=== PATIENT | female | born 2000 | race Two or more races ===

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

== ENCOUNTER 2018-05-02 05:00 | Inpatient (IN) | payer MEDICAID ==
[2018-05-02] VITALS (10 sets, daily range): BP systolic 107–133; BP diastolic 51–88
[~2018-05-02] VITALS: Ht 162.6 cm; Wt 95.7 kg
[2018-05-02] MEDS ORDERED: LACTATED RINGER'S 1,000 ML IV SCH (05:19)
[2018-05-02 05:50] LABS: Basophils # (auto) 0.1 uL; Basophils % (auto) 0.7 % (0.0-2.0); Eosinophils # (auto) 0.1 uL; Eosinophils % (auto) 1.1 % (0.0-7.0); Hematocrit 41.6 % (36.0-46.0); Hemoglobin 14.1 g/dL (12.2-16.2); Lymphocytes # (auto) 1.7 uL; Lymphocytes % (auto) 21.7 % (10.0-50.0); Mean Corpuscular Hgb Conc. 33.8 g/dL (32.0-36.0); Mean Corpuscular Volume 91.8 fL (80.0-100.0); Monocytes # (auto) 0.9 uL; Neutrophils # (auto) 5.1 uL; Neutrophils % (auto) 64.5 % (37.0-80.0); Nucleated Red Blood Cells % 0.1 %; Platelet Count (auto) 212 10^3/uL (140-450); Red Blood Cells 4.53 10^6/uL (4.0-5.20); Red Cell Distribution Width 13.4 % (11.8-14.3); White Blood Cell 7.8 10^3/uL (4.4-10.8)
[2018-05-02 06:06] LABS: Albumin 2.8 g/dL (3.4-5.0); INR 0.83 (0.9-1.15); Partial Thromboplastin Time 27.6 sec (23.78-33.04); Potassium 3.8 mmol/L (3.5-5.1)
[2018-05-02 06:08] LABS: BUN/Creatinine Ratio 15.5; Bilirubin, Total 0.4 mg/dL (0.2-1.0); Total Protein 6.9 g/dL (6.4-8.2)
[2018-05-02] MEDS ORDERED: PREN-96 PO (06:44)
[2018-05-02 06:55] LABS: Urine Bacteria NONE SEEN /hpf (None Seen); Urine Blood Negative /uL (Negative); Urine Specific Gravity 1.014 (1.001-1.035); Urine WBC 30 /hpf (0 - 5)
[2018-05-02 07:16] LABS: Alcohol, Urine < 3.0 mg/dL (0-5); Amphetamine Screen, Urine NEGATIVE (NEGATIVE); Barbiturate Scree,Urine NEGATIVE (NEGATIVE); Benzodiazephine Screen, Urine NEGATIVE (NEGATIVE); Cannabinoid Screen, Urine NEGATIVE (NEGATIVE); Cocaine Screen, Urine NEGATIVE (NEGATIVE); Opiate Scree,Urine NEGATIVE (NEGATIVE); Phencyclidine Screen, Urine NEGATIVE (NEGATIVE)
[2018-05-02] MEDS ORDERED: LACTATED RINGER'S 500 ML IV ONE (07:35)
[2018-05-02] MEDS ORDERED: MORPHINE SULF(PF) 0.5MG/ML 10ML VIAL ONE (07:40)
[2018-05-02] MEDS ORDERED: fentaNYL CITRATE 100 MCG/2 ML VL ONE (07:40)
[2018-05-02] MEDS ORDERED: SUCCINYLCHOLINE CHLORIDE 20 MG/ML 10ML VIAL IV ONE (07:53)
[2018-05-02] MEDS ORDERED: KETOROLAC TROMETH 30 MG/ML 1ML VIAL IV PRN (09:15)
[2018-05-02] MEDS ORDERED: ONDANSETRON HCL 4 MG/2 ML VIAL IV PRN ×2 (09:15)
[2018-05-02] MEDS ORDERED: ceFAZolin 1GM/50ML 50 ML IV SCH (09:15)
[2018-05-02] MEDS ORDERED: NALOXONE HCL 0.4 MG/ML VIAL IV PRN (09:15)
[2018-05-02] MEDS ORDERED: diphenhdrAMINE HCL 50 MG/1 ML VL IV PRN (09:15)
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
--- NOTE | 2018-05-02 10:15 | NUR ---
Post Op for LDRP: Received patient from PACU via bed B to room 108 . Patient A/A/Ox4, abdominal binder and bilateral SCD's are in place, IV fluids placed on pump and infusing per order, incisional site dressing clean/dry/intact and Luis Catheter to gravity draining clear yellow urine. Incentive Spirometer at bedside and instruction on proper use with return demonstration done by patient.
--- NOTE | 2018-05-02 11:23 | NUR ---
REPORT GIVEN TO Bibiana LAST RN
[2018-05-02] MEDS: KETOROLAC TROMETH 30 MG/ML 1ML VIAL IV SCH ×2 (12:00→17:44)
[2018-05-02] MEDS: LACTATED RINGER'S 1,000 ML IV SCH ×2 (12:12→16:59)
[2018-05-02] MEDS: ceFAZolin 1GM/50ML 50 ML IV SCH ×2 (15:31→23:48)
[2018-05-02] MEDS: HYDROmorphone HCL 2 MG/ML VL IV PRN ×3 (15:31→23:39)
--- NOTE | 2018-05-02 17:36 | NUR ---
social services aide to see patient saturday
--- NOTE | 2018-05-02 19:00 | NUR ---
Dressing to lower abdominal incision clean, dry and intact. Abdominal binder applied. Addendum: 05/02/18 at 2126 by Diann Deleon RN RN Amended: Links added.
--- NOTE | 2018-05-02 19:45 | NUR ---
IV removal 20g peripheral IV to right hand DC'd with clean technique, catheter fully intact. Pressure dressing applied to site. Patient tolerated procedure well.
[2018-05-03] VITALS (7 sets, daily range): BP systolic 112–129; BP diastolic 55–78
[2018-05-03] MEDS: KETOROLAC TROMETH 30 MG/ML 1ML VIAL IV SCH ×2 (00:36→06:06)
--- NOTE | 2018-05-03 00:45 | NUR ---
Luis catheter dc'd Luis dc'd with clean technique following deflation of balloon. Patient tolerated well with no complaints of pain.
--- NOTE | 2018-05-03 01:40 | NUR ---
Ambulation: Patient OOB with standby assistance by RN. Patient ambulated to bathroom with steady gait. Patient unable to void at this time. Pericare teaching provided with returned demonstration by patient. Clean gown provided and bed linen changed. Patient ambulated back to bed with steady gait and no distress noted. dressing to lower abdominal incision removed. Incision clean, dry and well approximated. 10 mingo present and intact. Clean abdominal binder applied.
[2018-05-03] MEDS: HYDROmorphone HCL 2 MG/ML VL IV PRN (04:58)
[2018-05-03 06:06] LABS: RPR Non Reactive (Non Reactive)
[2018-05-03 06:52] LABS: Basophils # (auto) 0 uL; Basophils % (auto) 0.5 % (0.0-2.0); Eosinophils # (auto) 0 uL; Eosinophils % (auto) 0.6 % (0.0-7.0); Hematocrit 36.7 % (36.0-46.0); Hemoglobin 12.6 g/dL (12.2-16.2); Lymphocytes # (auto) 0.9 uL; Lymphocytes % (auto) 12.5 % (10.0-50.0); Mean Corpuscular Hemoglobin 31.1 pg (28.0-32.0); Mean Corpuscular Hgb Conc. 34.3 g/dL (32.0-36.0); Mean Corpuscular Volume 90.6 fL (80.0-100.0); Monocytes # (auto) 0.8 uL; Monocytes % (auto) 11.1 % (0.0-12.0); Neutrophils # (auto) 5.6 uL; Neutrophils % (auto) 75.3 % (37.0-80.0); Nucleated Red Blood Cells % 0.1 %; Platelet Count (auto) 176 10^3/uL (140-450); Red Blood Cells 4.04 10^6/uL (4.0-5.20); Red Cell Distribution Width 13.5 % (11.8-14.3); White Blood Cell 7.4 10^3/uL (4.4-10.8)
--- NOTE | 2018-05-03 06:55 | NUR ---
Pt resting in bed. Call light in reach. Sd rails upx2. Bed low. Board updated. Updated on poc, pain management. Verbalized understanding. Addendum: 05/03/18 at 1755 by DEVONTE BENJAMIN RN Incision open to air. Ten [address] place, no redness, no edema, no ecchimosis, no drainage, edges well approximated. Abdominal binder in place. Educated on need to use IS 10x hour to prevent PNA. Verbalized understanding. Demonstrated proper technique. Reached 1999.
[2018-05-03] MEDS: ceFAZolin 1GM/50ML 50 ML IV SCH (07:48)
--- NOTE | 2018-05-03 09:00 | NUR ---
Dr Frey made rounds with TRES Caceres.
[2018-05-03] MEDS ORDERED: BISACODYL 10 MG RECT SUPP PR PRN (09:15)
[2018-05-03] MEDS ORDERED: HYDROcodone-ACET 5/325MG TAB PO PRN (09:15)
[2018-05-03] MEDS: IBUPROFEN 800 MG TAB PO PRN ×2 (10:25→18:42)
[2018-05-03] MEDS: DOCUSATE CALCIUM 240 MG CAP PO SCH (10:26)
[2018-05-03] MEDS: DOCUSATE SOD 100 MG CAP PO SCH ×2 (10:27→22:00)
[2018-05-03] MEDS: SIMETHICONE 80 MG CHEWABLE TABLET PO SCH ×3 (12:00→22:00)
--- NOTE | 2018-05-03 13:45 | NUR ---
Pt requested breast pump and nipple shield. Educated on how to use breast pump, storing breast milk, cleaning of bottles, need to syringe feed to not confuse with bottle. Verbalized understanding of all information.
--- NOTE | 2018-05-03 19:30 | NUR ---
IV removal: IV DC'd with sterile technique, catheter fully intact. Pressure dressing applied to site. Patient tolerated procedure well. Addendum: 05/03/18 at 2007 by KISHORE BANERJEE RN Amended: Links added.
[2018-05-03] MEDS: HYDROcodone-ACET 5/325MG TAB PO PRN (19:50)
--- NOTE | 2018-05-03 22:00 | NUR ---
Patient refused 2200 medications, unable to chart refused under drop down menu.
[2018-05-04] VITALS (7 sets, daily range): BP systolic 119–132; BP diastolic 58–84
[2018-05-04] MEDS: HYDROcodone-ACET 5/325MG TAB PO PRN ×4 (00:28→20:12)
[2018-05-04] MEDS: DOCUSATE SOD 100 MG CAP PO SCH ×2 (05:43→22:27)
[2018-05-04] MEDS: SIMETHICONE 80 MG CHEWABLE TABLET PO SCH ×4 (05:43→22:27)
[2018-05-04] MEDS: DOCUSATE CALCIUM 240 MG CAP PO SCH (05:43)
[2018-05-04] MEDS: IBUPROFEN 800 MG TAB PO PRN ×2 (07:52→17:44)
--- NOTE | 2018-05-04 12:27 | NUR ---
PROCEDURAL NURSE PAGED PROCEDURAL NURSE REGARDING PENDING PROCEDURAL NURSE CONSULT. AWAITING CALL BACK.
--- NOTE | 2018-05-04 12:40 | NUR ---
BREAKER UP Yasmin CORDOBA CASE MANAGEMENT CALLED BACK. NOTIFIED HER OF PENDING BREAKER UP CONSULT. PER Yasmin CORDOBA, SHE WILL PAGE MIRI LEON AND NOTIFY HER OF CONSULT.
--- NOTE | 2018-05-04 12:45 | NUR ---
AMBULATION PT AMBULATING HALLWAY WITH STEADY GAIT, PUSHING IN OPEN CRIB. NO S/S OF DISTRESS OR SOB NOTED.
--- NOTE | 2018-05-04 13:00 | NUR ---
LOADING UNIT OPERATOR SEATING Emma LEON LOADING UNIT OPERATOR SEATING CALLED BACK. NOTIFIED HER OF LOADING UNIT OPERATOR SEATING CONSULT. PER Emma LEON, SHE STATED SOMEONE ALREADY SAW THIS PATIENT. NOTIFIED MIRI THAT NO NOTE IS DOCUMENTED THAT PT WAS SEEN YET. PER MIRI SHE WILL INVESTIGATE FURTHER. WILL CONTINUE TO MONITOR.
--- NOTE | 2018-05-04 13:30 | NUR ---
CLAIMS CONFIGURATION ANALYST VERENE FROM [employer]S [employer]URATION [employer] CALLED AND NOTIFIED WELT SLASHERTRES CARDENAS THAT SHE WILL COME TALK WITH PATIENT TOMORROW. WILL NOTIFY AUDIO VISUAL TECHNICIAN RN. WILL CONTINUE TO MONITOR.
--- NOTE | 2018-05-04 18:09 | NUR ---
Post Op assessment complete, incision visualized. Incision is open to air, clean without bleeding or drainage, all mingo intact, no redness or warmth noted at the site.
[2018-05-05] MEDS: HYDROcodone-ACET 5/325MG TAB PO PRN (02:18)
[2018-05-05 02:38] VITALS: BP 119/75
--- NOTE | 2018-05-05 04:05 | NUR ---
Amelia COHEN at bedside for staple removal. All mingo removed at this time, patient has no complaints at this time nor does she display any signs of discomfort or distress.
--- NOTE | 2018-05-05 04:55 | NUR ---
Pt ambulating in hallways withe steady gait, while pushing in bassinet.
[2018-05-05] MEDS: IBUPROFEN 800 MG TAB PO PRN (05:43)
[2018-05-05] MEDS: SIMETHICONE 80 MG CHEWABLE TABLET PO SCH (05:43)
[2018-05-05 06:46] VITALS: BP 111/64
--- NOTE | 2018-05-05 07:58 | NUR ---
Social Service Paige called and states she will be in to see patient around 9 am.
--- NOTE | 2018-05-05 09:00 | NUR ---
Social Service at bedside to talk to patient . Maximiliano Gibson will make a note about conversation patient is all clear to go home. patient instructed to go to crisis center if having any thoughts of Suicide . Patient has address and telephone number to crisis center and states she will be follow up with her psych doctor after discharge home . Good family support mother at bedside. Discharge: Discharge instructions given as ordered. Pt encouraged to follow up with LITERACY TEACHER as instructed. All questions and concerns addressed. Patient verbalized understanding. Medication reconciliation completed and copy given to patient. Patient refused influenza vaccine. Patient encouraged to prepare to depart unit.
--- NOTE | 2018-05-05 09:30 | NUR ---
Discharge: Discharge instructions given as ordered. Pt encouraged to follow up with FUR TINTER as instructed. All questions and concerns addressed. Patient verbalized understanding. Medication reconciliation completed and copy given to patient. PATIENT REFUSED INFLUENZA VACCINE AND T-DAP Patient encouraged to prepare to depart unit.
[2018-05-05] MEDS: DOCUSATE SOD 100 MG CAP PO SCH (10:00)
[2018-05-05] MEDS: DOCUSATE CALCIUM 240 MG CAP PO SCH (10:00)
--- NOTE | 2018-05-05 10:00 | NUR ---
Discharge: Patient taken to vehicle via wheelchair with all personal belongings, accompanied by staff and family member. No distress noted at time of departure, no adverse changes in status since initial assessment.
== END 2018-05-05 10:00 | disposition home or self-care (01) | DRG 540 ==
LOC: LDRP 05:00
PROVIDERS: ADMIT Specialist; ATTEND Specialist
PROC: 10D00Z1 Extraction of Products of Conception, Low, Open Approach (ICD-10-PCS; principal; 2018-05-02 08:02)
DX: O32.1XX0 Maternal care for breech presentation, not applicable or unspecified (principal); F32.9 Major depressive disorder, single episode, unspecified; O99.344 Other mental disorders complicating childbirth; Z37.0 Single live birth; Z3A.39 39 weeks gestation of pregnancy; F41.9 Anxiety disorder, unspecified
CPT/HCPCS: 36415; 51702; 59025; 80053; 80307; 81001; 81002; 85025; 85610; 85730; 86592; 86850; 86900; 86901; 94760; 96365; 96366; 96374; 96375; G0378; J0330; J0690; J1885

== ENCOUNTER 2019-01-15 21:06 | Emergency (ER) | payer MEDICAID ==
[~2019-01-15] VITALS: Ht 162.6 cm; Wt 90.3 kg
[~2019-01-15 21:06] MED LIST: PREN-96 PO
[2019-01-15 21:53] LABS: Basophils # (auto) 0.1 uL; Basophils % (auto) 0.8 % (0.0-2.0); Eosinophils # (auto) 0.1 uL; Eosinophils % (auto) 1.5 % (0.0-7.0); Hematocrit 36.6 % (36.0-46.0); Hemoglobin 12.5 g/dL (12.2-16.2); Lymphocytes % (auto) 15.1 % (10.0-50.0); Mean Corpuscular Hemoglobin 29.6 pg (28.0-32.0); Mean Corpuscular Hgb Conc. 34.2 g/dL (32.0-36.0); Mean Corpuscular Volume 86.5 fL (80.0-100.0); Monocytes # (auto) 0.4 uL; Monocytes % (auto) 6.3 % (0.0-12.0); Neutrophils # (auto) 5.1 uL; Neutrophils % (auto) 76.3 % (37.0-80.0); Nucleated Red Blood Cells % 0.1 %; Platelet Count (auto) 288 10^3/uL (140-450); Red Blood Cells 4.23 10^6/uL (4.0-5.20); Red Cell Distribution Width 13.1 % (11.8-14.3); White Blood Cell 6.7 10^3/uL (4.4-10.8)
[2019-01-15 22:14] LABS: Albumin 3.7 g/dL (3.4-5.0); BUN/Creatinine Ratio 15.7; Calcium 8.7 mg/dL (8.5-10.1); Potassium 3.8 mmol/L (3.5-5.1)
[2019-01-15 22:16] LABS: Bilirubin, Total 0.3 mg/dL (0.2-1.0); Total Protein 7.3 g/dL (6.4-8.2)
[2019-01-16 02:00] VITALS: BP 116/68
== END 2019-01-16 04:00 | disposition home or self-care (01) ==
LOC: ER 21:06
DX: O03.9 Complete or unspecified spontaneous abortion without complication (principal); O99.331 Smoking (tobacco) complicating pregnancy, first trimester; Z3A.01 Less than 8 weeks gestation of pregnancy
CPT/HCPCS: 36415; 76801; 80053; 84702; 85025; 86850; 86900; 86901

== ENCOUNTER 2019-07-25 03:57 | Emergency (ER) | payer MEDICAID ==
[~2019-07-25] VITALS: Ht 162.6 cm; Wt 88.5 kg
[2019-07-25 07:53] LABS: Urine Bacteria FEW /hpf (None Seen); Urine Blood Negative /uL (Negative); Urine Mucus MODERATE (None Seen); Urine Specific Gravity 1.033 (1.001-1.035); Urine WBC 43 /hpf (0 - 5)
[2019-07-25 08:24] LABS: Amphetamine Screen, Urine POSITIVE (NEGATIVE); Barbiturate Scree,Urine NEGATIVE (NEGATIVE); Benzodiazephine Screen, Urine NEGATIVE (NEGATIVE); Cannabinoid Screen, Urine NEGATIVE (NEGATIVE); Cocaine Screen, Urine NEGATIVE (NEGATIVE); Opiate Scree,Urine NEGATIVE (NEGATIVE); Phencyclidine Screen, Urine NEGATIVE (NEGATIVE)
[2019-07-25 08:59] VITALS: BP 112/69
== END 2019-07-25 09:00 | disposition home or self-care (01) ==
LOC: ER 03:57
DX: T78.40XA Allergy, unspecified, initial encounter (principal); N39.0 Urinary tract infection, site not specified; F10.10 Alcohol abuse, uncomplicated; F12.10 Cannabis abuse, uncomplicated; F41.9 Anxiety disorder, unspecified; F17.210 Nicotine dependence, cigarettes, uncomplicated; Z90.710 Acquired absence of both cervix and uterus; Z32.02 Encounter for pregnancy test, result negative; X58.XXXA Exposure to other specified factors, initial encounter
CPT/HCPCS: 80307; 81001; 81025

== ENCOUNTER 2019-08-15 12:04 | Emergency (ER) | payer MEDICAID ==
[~2019-08-15] VITALS: Ht 162.6 cm; Wt 79.1 kg
[2019-08-15 14:09] LABS: Basophils # (auto) 0 10 ^3/uL (0-0.2); Basophils % (auto) 0.6 % (0.0-2.0); Eosinophils # (auto) 0.1 10 ^3/uL (0-0.8); Hematocrit 40.4 % (36.0-46.0); Hemoglobin 13.5 g/dL (12.2-16.2); Lymphocytes # (auto) 1.7 10 ^3/uL (0.4-5.4); Lymphocytes % (auto) 30.3 % (10.0-50.0); Mean Corpuscular Hgb Conc. 33.4 g/dL (32.0-36.0); Mean Corpuscular Volume 86.8 fL (80.0-100.0); Monocytes # (auto) 0.5 10 ^3/uL (0-1.3); Neutrophils # (auto) 3.3 10 ^3/uL (1.6-8.6); Neutrophils % (auto) 58.1 % (37.0-80.0); Nucleated Red Blood Cells % 0.1 %; Platelet Count (auto) 278 10^3/uL (140-450); Red Blood Cells 4.65 10^6/uL (4.0-5.20); Red Cell Distribution Width 14.3 % (11.8-14.3); White Blood Cell 5.6 10^3/uL (4.4-10.8)
[2019-08-15 14:14] LABS: Urine Bacteria FEW /hpf (None Seen); Urine Blood 1+ /uL (Negative); Urine Mucus FEW (None Seen); Urine Specific Gravity 1.022 (1.001-1.035); Urine WBC 4 /hpf (0 - 5)
[2019-08-15 14:30] LABS: Alcohol, Urine < 3.0 mg/dL (0-10); Amphetamine Screen, Urine NEGATIVE (NEGATIVE); Barbiturate Scree,Urine NEGATIVE (NEGATIVE); Benzodiazephine Screen, Urine NEGATIVE (NEGATIVE); Cannabinoid Screen, Urine NEGATIVE (NEGATIVE); Cocaine Screen, Urine NEGATIVE (NEGATIVE); Opiate Scree,Urine NEGATIVE (NEGATIVE); Phencyclidine Screen, Urine NEGATIVE (NEGATIVE)
[2019-08-15 16:01] VITALS: BP 114/72
== END 2019-08-15 16:22 | disposition home or self-care (01) ==
LOC: ER 12:04
DX: O20.0 Threatened abortion (principal); O23.41 Unspecified infection of urinary tract in pregnancy, first trimester; O30.001 Twin pregnancy, unspecified number of placenta and unspecified number of amniotic sacs, first trimester; Z3A.01 Less than 8 weeks gestation of pregnancy
CPT/HCPCS: 36415; 76801; 76817; 80307; 81001; 84702; 85025

== ENCOUNTER 2019-10-01 20:35 | Emergency (ER) | payer MEDICAID ==
[~2019-10-01] VITALS: Ht 162.6 cm; Wt 82.1 kg
[2019-10-01 21:21] VITALS: BP 133/70
[2019-10-01 22:28] LABS: Basophils # (auto) 0 10 ^3/uL (0-0.2); Basophils % (auto) 0.5 % (0.0-2.0); Eosinophils # (auto) 0.2 10 ^3/uL (0-0.8); Eosinophils % (auto) 2.2 % (0.0-7.0); Hematocrit 37.3 % (36.0-46.0); Hemoglobin 12.6 g/dL (12.2-16.2); Lymphocytes # (auto) 1.7 10 ^3/uL (0.4-5.4); Lymphocytes % (auto) 21.4 % (10.0-50.0); Mean Corpuscular Hemoglobin 30.3 pg (28.0-32.0); Mean Corpuscular Hgb Conc. 33.9 g/dL (32.0-36.0); Mean Corpuscular Volume 89.6 fL (80.0-100.0); Monocytes # (auto) 0.6 10 ^3/uL (0-1.3); Monocytes % (auto) 8.2 % (0.0-12.0); Neutrophils # (auto) 5.2 10 ^3/uL (1.6-8.6); Neutrophils % (auto) 67.7 % (37.0-80.0); Platelet Count (auto) 268 10^3/uL (140-450); Red Blood Cells 4.16 10^6/uL (4.0-5.20); White Blood Cell 7.7 10^3/uL (4.4-10.8)
[2019-10-01 22:48] LABS: Urine Bacteria NONE SEEN /hpf (None Seen); Urine Blood 3+ /uL (Negative); Urine Specific Gravity 1.031 (1.001-1.035); Urine WBC 112 /hpf (0 - 5)
[2019-10-01 22:53] LABS: Albumin 3.1 g/dL (3.4-5.0); Potassium 3.8 mmol/L (3.5-5.1)
[2019-10-01 22:57] LABS: BUN/Creatinine Ratio 16.9; Bilirubin, Total 0.2 mg/dL (0.2-1.0); Total Protein 7.3 g/dL (6.4-8.2)
[2019-10-01 23:52] LABS: Alcohol, Urine < 3.0 mg/dL (0-10); Amphetamine Screen, Urine NEGATIVE (NEGATIVE); Barbiturate Scree,Urine NEGATIVE (NEGATIVE); Benzodiazephine Screen, Urine NEGATIVE (NEGATIVE); Cannabinoid Screen, Urine NEGATIVE (NEGATIVE); Cocaine Screen, Urine NEGATIVE (NEGATIVE); Opiate Scree,Urine NEGATIVE (NEGATIVE); Phencyclidine Screen, Urine NEGATIVE (NEGATIVE)
[2019-10-02] MEDS ORDERED: cefTRIAXone SOD 1,000 MG VL IM ONE (00:45)
[2019-10-02] MEDS ORDERED: LIDOCAINE 2%HCL (LOCAL ANESTH.) INJ 20ML MDV ONE (01:57)
== END 2019-10-02 02:10 | disposition home or self-care (01) ==
LOC: ER 20:35
DX: O20.9 Hemorrhage in early pregnancy, unspecified (principal); O23.41 Unspecified infection of urinary tract in pregnancy, first trimester; O30.001 Twin pregnancy, unspecified number of placenta and unspecified number of amniotic sacs, first trimester; Z3A.10 10 weeks gestation of pregnancy
CPT/HCPCS: 36415; 76801; 80053; 80307; 81001; 84702; 85025; 99284; J0696

== ENCOUNTER 2020-03-02 21:10 | Observation (INO) | payer MEDICAID ==
[2020-03-02 22:39] LABS: Urine Amorphous Crystal MOD /hpf (None Seen); Urine Bacteria MOD /hpf (None Seen); Urine Blood Negative /uL (Negative); Urine Mucus FEW (None Seen); Urine Specific Gravity 1.017 (1.001-1.035); Urine WBC 97 /hpf (0 - 5)
[2020-03-03] MEDS: TERBUTALINE SULFATE 1 MG/ML 1ML VIAL SC SCH ×3 (01:04→01:55)
[2020-03-03] MEDS ORDERED: BETAMETHASONE ACET (6MG/ML) 5ML VIAL IM ONE (01:30)
[2020-03-03] MEDS ORDERED: NIFEdipine 10 MG CAP PO SCH (02:00)
== END 2020-03-03 07:49 | disposition home or self-care (01) ==
LOC: LDRP 21:10 → UNDOADMOB 21:10 → UNDODISOB 03-03 07:49
PROVIDERS: ADMIT Specialist; ATTEND Specialist
DX: O30.003 Twin pregnancy, unspecified number of placenta and unspecified number of amniotic sacs, third trimester (principal); O26.893 Other specified pregnancy related conditions, third trimester; R10.30 Lower abdominal pain, unspecified; R10.2 Pelvic and perineal pain; N89.8 Other specified noninflammatory disorders of vagina; Z3A.33 33 weeks gestation of pregnancy
CPT/HCPCS: 59025; 76815; 81001; 81002; 96360; 96361; 96372; G0378; J0702; J3105

== ENCOUNTER 2020-03-08 16:00 | Observation (INO) | payer MEDICAID | END 2020-03-08 19:16 | disposition home or self-care (01) | LOC: LDRP 16:00 | PROVIDERS: ADMIT Specialist; ATTEND Specialist | DX: O30.003 Twin pregnancy, unspecified number of placenta and unspecified number of amniotic sacs, third trimester (principal); O62.9 Abnormality of forces of labor, unspecified; Z3A.34 34 weeks gestation of pregnancy | CPT/HCPCS: 59025; 76818; 81002; G0378 ==

== ENCOUNTER 2020-03-20 12:06 | Observation (INO) | payer MEDICAID | END 2020-03-20 12:15 | disposition home or self-care (01) | LOC: LDRP 12:06 | PROVIDERS: ADMIT Obstetrics & Gynecology; ATTEND Obstetrics & Gynecology | DX: U07.1 COVID-19 (principal) | CPT/HCPCS: G0378 ==

== ENCOUNTER 2020-03-22 04:57 | Inpatient (IN) | payer MEDICAID ==
[2020-03-22] VITALS (16 sets, daily range): BP systolic 112–136; BP diastolic 56–74
[~2020-03-22] VITALS: Ht 162.6 cm; Wt 103.9 kg
[2020-03-22] MEDS ORDERED: ceFAZolin 1GM/50ML 50 ML IV ONE (05:15)
[2020-03-22] MEDS ORDERED: LACTATED RINGER'S 1,000 ML IV SCH ×2 (05:15→11:45)
[2020-03-22 06:45] LABS: Urine Bacteria MOD /hpf (None Seen); Urine Blood Negative /uL (Negative); Urine Specific Gravity 1.013 (1.001-1.035); Urine WBC 53 /hpf (0 - 5)
[2020-03-22 06:56] LABS: Basophils # (auto) 0 10 ^3/uL (0-0.2); Basophils % (auto) 0.4 % (0.0-2.0); Eosinophils # (auto) 0.1 10 ^3/uL (0-0.8); Eosinophils % (auto) 0.9 % (0.0-7.0); Hematocrit 34.4 % (36.0-46.0); Hemoglobin 11.9 g/dL (12.2-16.2); Lymphocytes # (auto) 1.4 10 ^3/uL (0.4-5.4); Lymphocytes % (auto) 21.1 % (10.0-50.0); Mean Corpuscular Hemoglobin 30.6 pg (28.0-32.0); Mean Corpuscular Hgb Conc. 34.6 g/dL (32.0-36.0); Mean Corpuscular Volume 88.5 fL (80.0-100.0); Monocytes # (auto) 0.6 10 ^3/uL (0-1.3); Monocytes % (auto) 9.4 % (0.0-12.0); Neutrophils # (auto) 4.5 10 ^3/uL (1.6-8.6); Neutrophils % (auto) 68.2 % (37.0-80.0); Nucleated Red Blood Cells % 0.1 %; Platelet Count (auto) 208 10^3/uL (140-450); Red Blood Cells 3.89 10^6/uL (4.0-5.20); Red Cell Distribution Width 13.7 % (11.8-14.3); White Blood Cell 6.7 10^3/uL (4.4-10.8)
[2020-03-22 07:01] LABS: INR 0.91 (0.9-1.15); Partial Thromboplastin Time 28.9 sec (23.0-31.2)
[2020-03-22 07:05] LABS: Albumin 2.4 g/dL (3.4-5.0); Calcium 8.2 mg/dL (8.5-10.1); Potassium 3.6 mmol/L (3.5-5.1)
[2020-03-22 07:09] LABS: BUN/Creatinine Ratio 18.8; Bilirubin, Total 0.5 mg/dL (0.2-1.0); Total Protein 6.2 g/dL (6.4-8.2)
[2020-03-22] MEDS ORDERED: TETRACAINE 1% INJ 2 ML VIAL IJ ONE (09:29)
[2020-03-22] MEDS ORDERED: MORPHINE SULF(PF) 0.5MG/ML 10ML VIAL ONE (09:40)
[2020-03-22] MEDS ORDERED: fentaNYL CITRATE 100 MCG/2 ML VL ONE (09:41)
[2020-03-22] MEDS ORDERED: GUM (CHEWING) 1 GUM CHEW CHEW ONE (11:45)
[2020-03-22] MEDS ORDERED: ceFAZolin 1GM/50ML 50 ML IV SCH (11:45)
[2020-03-22] MEDS ORDERED: HYDROmorphone HCL 2 MG/ML VL IV PRN (11:45)
[2020-03-22] MEDS ORDERED: ONDANSETRON HCL 4 MG/2 ML VIAL IV PRN ×2 (11:45→14:30)
[2020-03-22] MEDS ORDERED: SODIUM CITR/CITRIC ACID ORAL SOLN 30 ML PO SCH (13:00)
[2020-03-22] MEDS: KETOROLAC TROMETH 30 MG/ML 1ML VIAL IV PRN ×2 (13:53→22:20)
[2020-03-22] MEDS ORDERED: diphenhdrAMINE HCL 50 MG/1 ML VL IV PRN (14:30)
[2020-03-22] MEDS ORDERED: NALOXONE HCL 0.4 MG/ML VIAL IV PRN (14:30)
[2020-03-22] MEDS: ceFAZolin 1GM/50ML 50 ML IV SCH (17:44)
[2020-03-23] VITALS (9 sets, daily range): BP systolic 104–121; BP diastolic 56–78
[2020-03-23] MEDS: ceFAZolin 1GM/50ML 50 ML IV SCH ×2 (02:00→10:16)
[2020-03-23] MEDS: KETOROLAC TROMETH 30 MG/ML 1ML VIAL IV PRN (05:10)
[2020-03-23 06:06] LABS: RPR Non Reactive (Non Reactive)
[2020-03-23] MEDS ORDERED: SIMETHICONE 80 MG CHEWABLE TABLET PO PRN (08:30)
[2020-03-23] MEDS ORDERED: HYDROcodone-ACET 5/325MG TAB PO PRN (08:30)
[2020-03-23] MEDS: HYDROcodone-ACET 5/325MG TAB PO PRN ×3 (09:07→19:09)
[2020-03-23] MEDS: DOCUSATE SOD 100 MG CAP PO SCH ×2 (10:16→23:09)
[2020-03-23 10:44] LABS: Basophils # (auto) 0 10 ^3/uL (0-0.2); Basophils % (auto) 0.5 % (0.0-2.0); Eosinophils # (auto) 0 10 ^3/uL (0-0.8); Eosinophils % (auto) 0.8 % (0.0-7.0); Hematocrit 32.8 % (36.0-46.0); Hemoglobin 11.4 g/dL (12.2-16.2); Lymphocytes # (auto) 0.9 10 ^3/uL (0.4-5.4); Lymphocytes % (auto) 14.9 % (10.0-50.0); Mean Corpuscular Hemoglobin 30.7 pg (28.0-32.0); Mean Corpuscular Hgb Conc. 34.6 g/dL (32.0-36.0); Mean Corpuscular Volume 88.5 fL (80.0-100.0); Monocytes # (auto) 0.6 10 ^3/uL (0-1.3); Monocytes % (auto) 9.9 % (0.0-12.0); Neutrophils # (auto) 4.7 10 ^3/uL (1.6-8.6); Neutrophils % (auto) 73.9 % (37.0-80.0); Nucleated Red Blood Cells % 0.1 %; Platelet Count (auto) 181 10^3/uL (140-450); Red Blood Cells 3.71 10^6/uL (4.0-5.20); Red Cell Distribution Width 13.6 % (11.8-14.3); White Blood Cell 6.3 10^3/uL (4.4-10.8)
[2020-03-23] MEDS: IBUPROFEN 800 MG TAB PO PRN ×2 (12:03→20:23)
[2020-03-24] MEDS: HYDROcodone-ACET 5/325MG TAB PO PRN ×3 (02:48→19:01)
[2020-03-24 03:06] VITALS: BP 131/73
[2020-03-24 06:58] VITALS: BP 111/67
[2020-03-24] MEDS: IBUPROFEN 800 MG TAB PO PRN ×2 (06:58→15:35)
[2020-03-24] MEDS: DOCUSATE SOD 100 MG CAP PO SCH ×2 (10:12→21:40)
[2020-03-24 10:41] VITALS: BP 112/61
[2020-03-24 15:13] VITALS: BP 118/71
[2020-03-24 19:00] VITALS: BP 129/68
[2020-03-24 22:47] VITALS: BP 123/71
[2020-03-25] MEDS: HYDROcodone-ACET 5/325MG TAB PO PRN ×2 (01:33→09:37)
[2020-03-25 03:00] VITALS: BP 122/75
[2020-03-25] MEDS: IBUPROFEN 800 MG TAB PO PRN (03:58)
[2020-03-25 07:00] VITALS: BP 114/58
[2020-03-25 11:04] VITALS: BP 120/62
[2020-03-25 15:00] VITALS: BP 122/64
[2020-03-25] MEDS ORDERED: IBUP800T24 PO (15:44)
[2020-03-25] MEDS ORDERED: HYDR-4833 PO ×2 (15:44→15:50)
== END 2020-03-25 15:30 | disposition home or self-care (01) | DRG 540 ==
LOC: LDRP 04:57
PROVIDERS: ADMIT Specialist; ATTEND Specialist
PROC: 10D00Z1 Extraction of Products of Conception, Low, Open Approach (ICD-10-PCS; principal; 2020-03-22 09:45)
DX: O34.211 Maternal care for low transverse scar from previous cesarean delivery (principal); O98.52 Other viral diseases complicating childbirth; U07.1 COVID-19; O32.1XX1 Maternal care for breech presentation, fetus 1; O30.043 Twin pregnancy, dichorionic/diamniotic, third trimester; Z37.2 Twins, both liveborn; O99.62 Diseases of the digestive system complicating childbirth; K66.0 Peritoneal adhesions (postprocedural) (postinfection); Z3A.36 36 weeks gestation of pregnancy; O99.214 Obesity complicating childbirth; E66.01 Morbid (severe) obesity due to excess calories
CPT/HCPCS: 36415; 59025; 80053; 81001; 81002; 85025; 85610; 85730; 86592; 86850; 86900; 86901; 94762; 96360; 96361; 96365; 96366; 96374; 96375; G0378; J0690; J1885

== ENCOUNTER 2020-10-14 01:38 | Emergency (ER) | payer MEDICAID ==
[~2020-10-14] VITALS: Ht 162.6 cm; Wt 90.7 kg
[~2020-10-14 01:38] MED LIST changes: +HYDR-4833 PO; +IBUP800T26 PO
[2020-10-14 02:26] LABS: Basophils # (auto) 0.1 10 ^3/uL (0-0.2); Eosinophils # (auto) 0.2 10 ^3/uL (0-0.8); Eosinophils % (auto) 3.1 % (0.0-7.0); Hematocrit 38.2 % (36.0-46.0); Hemoglobin 13.2 g/dL (12.2-16.2); Lymphocytes # (auto) 2.7 10 ^3/uL (0.4-5.4); Mean Corpuscular Hemoglobin 29.7 pg (28.0-32.0); Mean Corpuscular Hgb Conc. 34.5 g/dL (32.0-36.0); Monocytes # (auto) 0.3 10 ^3/uL (0-1.3); Monocytes % (auto) 5.9 % (0.0-12.0); Neutrophils # (auto) 2.2 10 ^3/uL (1.6-8.6); Nucleated Red Blood Cells % 0.1 %; Red Blood Cells 4.44 10^6/uL (4.0-5.20); Red Cell Distribution Width 13.5 % (11.8-14.3); White Blood Cell 5.5 10^3/uL (4.4-10.8)
[2020-10-14 02:46] LABS: Alanine Aminotransferase 24 U/L (13-56); Albumin 3.6 g/dL (3.4-5.0); Anion Gap 7 (5-15); Aspartate Aminotransferase 21 U/L (15-37); Blood Urea Nitrogen 16 mg/dL (7-18); Calcium 8.8 mg/dL (8.5-10.1); Carbon Dioxide 24 mmol/L (21-32); Chloride 108 mmol/L (98-107); GFR African American 89 mL/min; GFR Non-African American 74 mL/min; Glucose 97 mg/dL (74-106); Sodium 139 mmol/L (136-145)
[2020-10-14 02:51] LABS: Alkaline Phosphatase 71 U/L (45-117); Bilirubin, Total 0.3 mg/dL (0.2-1.0); Total Protein 7.2 g/dL (6.4-8.2)
[2020-10-14 02:58] LABS: Potassium 2.9 mmol/L (3.5-5.1)
[2020-10-14] MEDS ORDERED: POTASSIUM EFFERVESENT TAB 25 MEQ PO ONE (03:00)
[2020-10-14 03:24] VITALS: BP 127/80
[2020-10-14] MEDS ORDERED: PANTOPRAZOLE 40 MG TAB PO ONE (03:30)
[2020-10-14 05:48] LABS: Urine Bacteria FEW /hpf (None Seen); Urine Blood 3+ /uL (Negative); Urine Mucus FEW (None Seen); Urine Specific Gravity 1.024 (1.001-1.035); Urine WBC 367 /hpf (0 - 5)
== END 2020-10-14 04:55 | disposition home or self-care (01) ==
LOC: ER 01:38
DX: K21.9 Gastro-esophageal reflux disease without esophagitis (principal); E66.9 Obesity, unspecified; Z68.34 Body mass index [BMI] 34.0-34.9, adult; Z79.1 Long term (current) use of non-steroidal anti-inflammatories (NSAID); Z79.899 Other long term (current) drug therapy; Z20.822 Contact with and (suspected) exposure to COVID-19
CPT/HCPCS: 36415; 80053; 81001; 83880; 84484; 84702; 85025; 87426; 93005

== ENCOUNTER 2021-01-16 20:50 | Emergency (ER) | payer SELFPAY ==
[~2021-01-16] VITALS: Ht 162.6 cm; Wt 79.5 kg
[2021-01-16 20:50] VITALS: BP 129/88
[2021-01-16 22:05] LABS: Urine Bacteria NONE SEEN /hpf (None Seen); Urine Blood 2+ /uL (Negative); Urine Mucus FEW (None Seen); Urine Specific Gravity 1.029 (1.001-1.035); Urine WBC 27 /hpf (0 - 5)
[2021-01-16 22:37] LABS: Basophils # (auto) 0 10 ^3/uL (0-0.2); Basophils % (auto) 0.6 % (0.0-2.0); Eosinophils # (auto) 0.3 10 ^3/uL (0-0.8); Eosinophils % (auto) 5.6 % (0.0-7.0); Hematocrit 40.1 % (36.0-46.0); Hemoglobin 13.5 g/dL (12.2-16.2); Lymphocytes # (auto) 1.7 10 ^3/uL (0.4-5.4); Lymphocytes % (auto) 33.5 % (10.0-50.0); Mean Corpuscular Hemoglobin 29.4 pg (28.0-32.0); Mean Corpuscular Hgb Conc. 33.7 g/dL (32.0-36.0); Mean Corpuscular Volume 87.2 fL (80.0-100.0); Monocytes # (auto) 0.3 10 ^3/uL (0-1.3); Neutrophils # (auto) 2.8 10 ^3/uL (1.6-8.6); Neutrophils % (auto) 54.3 % (37.0-80.0); Nucleated Red Blood Cells % 0.1 %; Red Blood Cells 4.59 10^6/uL (4.0-5.20); Red Cell Distribution Width 14.4 % (11.8-14.3); White Blood Cell 5.2 10^3/uL (4.4-10.8)
[2021-01-16 22:52] LABS: Calcium 8.9 mg/dL (8.5-10.1); Potassium 3.7 mmol/L (3.5-5.1)
[2021-01-16 22:59] LABS: Albumin 3.7 g/dL (3.4-5.0); BUN/Creatinine Ratio 15.5; Bilirubin, Total 0.2 mg/dL (0.2-1.0); Total Protein 7.3 g/dL (6.4-8.2)
== END 2021-01-16 23:27 | disposition left against medical advice (07) ==
LOC: ER 20:50
DX: N93.9 Abnormal uterine and vaginal bleeding, unspecified (principal); Z53.21 Procedure and treatment not carried out due to patient leaving prior to being seen by health care provider
CPT/HCPCS: 36415; 80053; 81001; 84702; 85025

== ENCOUNTER 2021-01-17 16:17 | Emergency (ER) | payer SELFPAY ==
[~2021-01-17] VITALS: Ht 162.6 cm; Wt 68.0 kg
[2021-01-17 16:55] VITALS: BP 122/82
== END 2021-01-17 19:56 | disposition left against medical advice (07) ==
LOC: EDBD 16:17 → ER 16:17
DX: R10.9 Unspecified abdominal pain (principal); Z53.21 Procedure and treatment not carried out due to patient leaving prior to being seen by health care provider

== ENCOUNTER 2021-03-20 14:00 | Emergency (ER) | payer SELFPAY ==
[~2021-03-20] VITALS: Ht 162.6 cm; Wt 68.0 kg
[2021-03-20 14:38] VITALS: BP 118/77
== END 2021-03-20 16:26 | disposition left against medical advice (07) ==
LOC: ER 14:00 → EDBD 14:00 → ER 16:26
DX: J45.901 Unspecified asthma with (acute) exacerbation (principal); F12.10 Cannabis abuse, uncomplicated; Z53.29 Procedure and treatment not carried out because of patient's decision for other reasons
CPT/HCPCS: 93005

== ENCOUNTER 2021-07-27 19:14 | Emergency (ER) | payer SELFPAY ==
[~2021-07-27] VITALS: Ht 162.6 cm; Wt 72.6 kg
[2021-07-27 19:42] LABS: Urine Amorphous Crystal FEW /hpf (None Seen); Urine Bacteria FEW /hpf (None Seen); Urine Blood Negative /uL (Negative); Urine Budding Yeast MODERATE /hpf (None Seen); Urine Specific Gravity 1.021 (1.001-1.035); Urine WBC 12 /hpf (0 - 5); Urine WBC Clumps PRESENT /hpf (None Seen)
[2021-07-27 20:11] LABS: Eosinophils # (auto) 0.1 10 ^3/uL (0-0.8); Mean Corpuscular Volume 87.3 fL (80.0-100.0); Red Cell Distribution Width 13.5 % (11.8-14.3)
[2021-07-27 20:14] LABS: Basophils # (auto) 0 10 ^3/uL (0-0.2); Basophils % (auto) 0.5 % (0.0-2.0); Eosinophils % (auto) 1.5 % (0.0-7.0); Hematocrit 36.6 % (36.0-46.0); Lymphocytes # (auto) 1.8 10 ^3/uL (0.4-5.4); Lymphocytes % (auto) 25.8 % (10.0-50.0); Mean Corpuscular Hemoglobin 30.9 pg (28.0-32.0); Mean Corpuscular Hgb Conc. 35.4 g/dL (32.0-36.0); Monocytes # (auto) 0.7 10 ^3/uL (0-1.3); Monocytes % (auto) 9.9 % (0.0-12.0); Neutrophils # (auto) 4.3 10 ^3/uL (1.6-8.6); Neutrophils % (auto) 62.3 % (37.0-80.0); Red Blood Cells 4.19 10^6/uL (4.0-5.20)
[2021-07-27 20:24] LABS: Albumin 3.3 g/dL (3.4-5.0); BUN/Creatinine Ratio 11.3; Calcium 9.2 mg/dL (8.5-10.1); Potassium 3.5 mmol/L (3.5-5.1)
[2021-07-27 20:27] LABS: Bilirubin, Total 0.4 mg/dL (0.2-1.0); Total Protein 6.7 g/dL (6.4-8.2)
[2021-07-27] MEDS ORDERED: DOXY10TA OR (21:57)
[2021-07-27] MEDS ORDERED: CEPH-509 PO (21:57)
[2021-07-27 22:00] VITALS: BP 125/53
== END 2021-07-27 22:10 | disposition home or self-care (01) ==
LOC: ER 19:16
DX: O26.891 Other specified pregnancy related conditions, first trimester (principal); R10.9 Unspecified abdominal pain; F12.10 Cannabis abuse, uncomplicated; Z3A.11 11 weeks gestation of pregnancy
CPT/HCPCS: 36415; 76801; 80053; 81001; 84702; 85025

== ENCOUNTER 2021-11-27 06:28 | Observation (INO) | payer MEDICAID ==
[~2021-11-27] VITALS: Ht 162.6 cm; Wt 72.7 kg
[~2021-11-27 06:28] MED LIST changes: +CEPH-509 PO; +DOXY10TA OR
[2021-11-27 07:28] LABS: Albumin 2.5 g/dL (3.4-5.0); Basophils # (auto) 0.1 10 ^3/uL (0-0.2); Basophils % (auto) 0.8 % (0.0-2.0); Eosinophils # (auto) 0.2 10 ^3/uL (0-0.8); Eosinophils % (auto) 1.7 % (0.0-7.0); Hematocrit 37.3 % (36.0-46.0); Hemoglobin 12.2 g/dL (12.2-16.2); Lymphocytes # (auto) 1.4 10 ^3/uL (0.4-5.4); Lymphocytes % (auto) 15.8 % (10.0-50.0); Mean Corpuscular Hemoglobin 28.7 pg (28.0-32.0); Mean Corpuscular Hgb Conc. 32.8 g/dL (32.0-36.0); Mean Corpuscular Volume 87.5 fL (80.0-100.0); Monocytes # (auto) 0.9 10 ^3/uL (0-1.3); Monocytes % (auto) 9.6 % (0.0-12.0); Neutrophils # (auto) 6.5 10 ^3/uL (1.6-8.6); Neutrophils % (auto) 72.1 % (37.0-80.0); Nucleated Red Blood Cells % 0.1 %; Potassium 3.6 mmol/L (3.5-5.1); Red Blood Cells 4.26 10^6/uL (4.0-5.20)
[2021-11-27 07:31] LABS: BUN/Creatinine Ratio 16.4; Bilirubin, Total 0.4 mg/dL (0.2-1.0); Total Protein 6.8 g/dL (6.4-8.2)
[2021-11-27 08:06] LABS: INR 0.87 (0.9-1.15); Partial Thromboplastin Time 24.2 sec (24.6-33.4)
[2021-11-27 12:08] LABS: Urine Bacteria FEW /hpf (None Seen); Urine Blood Negative /uL (Negative); Urine Specific Gravity 1.017 (1.001-1.035); Urine WBC 74 /hpf (0 - 5)
[2021-11-27 12:16] LABS: Alcohol, Urine < 3.0 mg/dL (0-10); Amphetamine Screen, Urine NEGATIVE (NEGATIVE); Barbiturate Scree,Urine NEGATIVE (NEGATIVE); Benzodiazephine Screen, Urine NEGATIVE (NEGATIVE); Cannabinoid Screen, Urine NEGATIVE (NEGATIVE); Cocaine Screen, Urine NEGATIVE (NEGATIVE); Opiate Scree,Urine NEGATIVE (NEGATIVE); Phencyclidine Screen, Urine NEGATIVE (NEGATIVE)
[2021-11-27 13:00] VITALS: BP 122/75
[2021-11-27] MEDS ORDERED: CEPH-322 PO (13:57)
[2021-11-28 08:06] LABS: RPR Non Reactive (Non Reactive); Rubella Antibodies, IgG 1.84 index (Immune >0.99)
== END 2021-11-27 07:55 | disposition home or self-care (01) ==
LOC: EDBD 06:28 → ER 06:28 → LDRP 06:35
PROVIDERS: ADMIT Obstetrics & Gynecology Obstetrics; ATTEND Obstetrics & Gynecology Obstetrics
DX: O26.893 Other specified pregnancy related conditions, third trimester (principal); R07.89 Other chest pain; R06.02 Shortness of breath; O23.13 Infections of bladder in pregnancy, third trimester; N30.00 Acute cystitis without hematuria; O99.513 Diseases of the respiratory system complicating pregnancy, third trimester; J45.21 Mild intermittent asthma with (acute) exacerbation; Z3A.29 29 weeks gestation of pregnancy; Z79.899 Other long term (current) drug therapy
CPT/HCPCS: 36415; 59025; 76805; 80053; 80307; 81001; 81002; 84484; 85025; 85610; 85730; 86592; 86703; 86762; 86850; 86900; 86901; 87340; G0378

== ENCOUNTER 2022-05-30 07:14 | Inpatient (IN) | payer MEDICAID ==
[~2022-05-30] VITALS: Ht 162.6 cm; Wt 79.8 kg
[~2022-05-30 07:14] MED LIST changes: +CEPH-322 PO
[2022-05-30 07:55] LABS: Basophils # (auto) 0 10 ^3/uL (0-0.2); Basophils % (auto) 0.8 % (0.0-2.0); Eosinophils # (auto) 0.2 10 ^3/uL (0-0.8); Eosinophils % (auto) 3.5 % (0.0-7.0); Hemoglobin 13.1 g/dL (12.2-16.2); Lymphocytes # (auto) 3.1 10 ^3/uL (0.4-5.4); Mean Corpuscular Hemoglobin 28.2 pg (28.0-32.0); Mean Corpuscular Hgb Conc. 32.8 g/dL (32.0-36.0); Monocytes # (auto) 0.4 10 ^3/uL (0-1.3); Monocytes % (auto) 7.8 % (0.0-12.0); Neutrophils % (auto) 21.9 % (37.0-80.0); Nucleated Red Blood Cells % 0.1 %; Red Blood Cells 4.65 10^6/uL (4.0-5.20); Red Cell Distribution Width 16.6 % (11.8-14.3); White Blood Cell 4.7 10^3/uL (4.4-10.8)
[2022-05-30] MEDS ORDERED: MORPHINE SULFATE 4 MG/ML SYR/VIAL IV ONE (08:00)
[2022-05-30] MEDS ORDERED: ONDANSETRON HCL 4 MG/2 ML VIAL IV ONE (08:00)
[2022-05-30] MEDS ORDERED: PANTOPRAZOLE 40 MG/10 ML VIAL INJ IV ONE (08:00)
[2022-05-30 08:03] LABS: Urine Bacteria NONE SEEN /hpf (None Seen); Urine Blood Negative /uL (Negative); Urine Mucus FEW (None Seen); Urine Specific Gravity 1.025 (1.001-1.035); Urine WBC 1 /hpf (0 - 5)
[2022-05-30 08:11] LABS: Albumin 3.6 g/dL (3.4-5.0); BUN/Creatinine Ratio 20.8; Calcium 9.8 mg/dL (8.5-10.1); Potassium 3.9 mmol/L (3.5-5.1)
[2022-05-30 08:14] LABS: Bilirubin, Total 0.3 mg/dL (0.2-1.0); Total Protein 7.5 g/dL (6.4-8.2)
[2022-05-30 08:35] LABS: Alcohol, Urine < 3.0 mg/dL (0-10); Amphetamine Screen, Urine POSITIVE (NEGATIVE); Barbiturate Scree,Urine NEGATIVE (NEGATIVE); Benzodiazephine Screen, Urine NEGATIVE (NEGATIVE); Cannabinoid Screen, Urine NEGATIVE (NEGATIVE); Cocaine Screen, Urine NEGATIVE (NEGATIVE); Opiate Scree,Urine NEGATIVE (NEGATIVE); Phencyclidine Screen, Urine NEGATIVE (NEGATIVE)
[2022-05-30] MEDS ORDERED: ONDANSETRON HCL 4 MG/2 ML VIAL IV PRN (11:00)
[2022-05-30] MEDS ORDERED: KETOROLAC TROMETH 30 MG/ML 1ML VIAL IV ONE (11:00)
[2022-05-30] MEDS: SODIUM CHLORIDE 0.9% 1,000 ML IV SCH (11:07)
[2022-05-30 11:29] LABS: INR 0.93 (0.9-1.15)
[2022-05-30 17:17] VITALS: BP 116/73
[2022-05-30] MEDS ORDERED: ARIP2TAB PO (17:43)
[2022-05-30] MEDS ORDERED: PRAZ5CAP25 PO (17:43)
[2022-05-30 20:00] VITALS: BP 124/72
[2022-05-30 22:00] VITALS: BP 124/72
[2022-05-31] MEDS: SODIUM CHLORIDE 0.9% 1,000 ML IV SCH (02:57)
[2022-05-31 05:15] VITALS: BP 127/70
[2022-05-31 06:04] LABS: Basophils # (auto) 0 10 ^3/uL (0-0.2); Basophils % (auto) 0.5 % (0.0-2.0); Eosinophils # (auto) 0.2 10 ^3/uL (0-0.8); Eosinophils % (auto) 6.1 % (0.0-7.0); Hematocrit 36.2 % (36.0-46.0); Hemoglobin 11.9 g/dL (12.2-16.2); Lymphocytes # (auto) 1.1 10 ^3/uL (0.4-5.4); Lymphocytes % (auto) 29.2 % (10.0-50.0); Mean Corpuscular Hemoglobin 28.2 pg (28.0-32.0); Mean Corpuscular Volume 85.6 fL (80.0-100.0); Monocytes # (auto) 0.3 10 ^3/uL (0-1.3); Monocytes % (auto) 8.8 % (0.0-12.0); Neutrophils # (auto) 2.2 10 ^3/uL (1.6-8.6); Neutrophils % (auto) 55.4 % (37.0-80.0); Nucleated Red Blood Cells % 0.1 %; Red Blood Cells 4.23 10^6/uL (4.0-5.20); Red Cell Distribution Width 16.5 % (11.8-14.3); White Blood Cell 3.9 10^3/uL (4.4-10.8)
[2022-05-31 06:08] LABS: Calcium 8.6 mg/dL (8.5-10.1)
[2022-05-31 06:11] LABS: Albumin 3.1 g/dL (3.4-5.0); BUN/Creatinine Ratio 21.9
[2022-05-31 06:18] LABS: Total Protein 6.6 g/dL (6.4-8.2)
[2022-05-31 08:00] VITALS: BP 115/75
[2022-05-31 09:26] LABS: Hepatitis A Ab IgM Negative
[2022-05-31 09:28] LABS: Hepatitis B Core IgM Negative; Hepatitis C Antibody Negative (Negative)
[2022-05-31] MEDS: PATIENTS OWN MEDICATION (Prenatal Vit W/ Ferrous Fumara (Prenatal One Daily) 1 TAB) PO SCH (10:00)
[2022-05-31] MEDS: ENOXAPARIN SOD 40 MG/0.4 ML SYRINGE SC SCH (10:00)
[2022-05-31] MEDS: PANTOPRAZOLE 40 MG/10 ML VIAL INJ IV SCH (10:00)
[2022-05-31] MEDS ORDERED: LIDOCAINE W/ EPINEPHRINE 1% 20ML VIAL ONE (11:18)
[2022-05-31] MEDS ORDERED: KETOROLAC TROMETH 30 MG/ML 1ML VIAL IV ONE (12:30)
[2022-05-31] MEDS ORDERED: MIDAZOLAM HCL 2MG/2ML 2ml VIAL (1mg/ml) IV PRN (12:30)
[2022-05-31] MEDS ORDERED: HYDROmorphone HCL 2 MG/ML VL/or syr IV PRN (12:30)
[2022-05-31] MEDS ORDERED: MORPHINE SULFATE 4 MG/ML SYR/VIAL IV PRN (12:30)
[2022-05-31] MEDS ORDERED: LABETALOL HCL 5 MG/ML 4ML SYRINGE IV PRN (12:30)
[2022-05-31] MEDS ORDERED: ONDANSETRON HCL 4 MG/2 ML VIAL IV PRN (12:30)
[2022-05-31] MEDS ORDERED: ePHEDrine SULFATE 50 MG/ML AMP IV PRN (12:30)
[2022-05-31] MEDS: HYDROmorphone HCL 2 MG/ML VL/or syr IV PRN ×2 (13:44→13:57)
[2022-05-31] MEDS: D5W/SOD CHL 0.45%/KCL 20MEQ 1,000 ML IV SCH ×2 (15:00→21:36)
[2022-05-31] MEDS: metroNIDAZOLE 500MG/100ML 100 ML IV SCH ×3 (15:55→21:36)
[2022-05-31] MEDS: ceFAZolin 2 GM/D5W100ml 100 ML IV SCH ×2 (15:56→21:36)
[2022-05-31 17:19] VITALS: BP 126/75
[2022-05-31 20:10] VITALS: BP 129/73
[2022-05-31] MEDS: KETOROLAC TROMETH 30 MG/ML 1ML VIAL IV PRN (20:32)
[2022-05-31 22:00] VITALS: BP 129/73
[2022-06-01 05:00] VITALS: BP 126/75
[2022-06-01] MEDS: KETOROLAC TROMETH 30 MG/ML 1ML VIAL IV PRN (05:25)
[2022-06-01] MEDS: metroNIDAZOLE 500MG/100ML 100 ML IV SCH (05:25)
[2022-06-01] MEDS: ceFAZolin 2 GM/D5W100ml 100 ML IV SCH (05:26)
[2022-06-01 06:29] LABS: Basophils # (auto) 0 10 ^3/uL (0-0.2); Basophils % (auto) 0.2 % (0.0-2.0); Eosinophils # (auto) 0 10 ^3/uL (0-0.8); Eosinophils % (auto) 0.1 % (0.0-7.0); Hemoglobin 11.5 g/dL (12.2-16.2); Lymphocytes # (auto) 0.7 10 ^3/uL (0.4-5.4); Lymphocytes % (auto) 9.9 % (10.0-50.0); Mean Corpuscular Hemoglobin 28.4 pg (28.0-32.0); Mean Corpuscular Hgb Conc. 32.9 g/dL (32.0-36.0); Mean Corpuscular Volume 86.3 fL (80.0-100.0); Monocytes # (auto) 0.5 10 ^3/uL (0-1.3); Neutrophils # (auto) 5.7 10 ^3/uL (1.6-8.6); Neutrophils % (auto) 82.8 % (37.0-80.0); Nucleated Red Blood Cells % 0.1 %; Red Blood Cells 4.05 10^6/uL (4.0-5.20); Red Cell Distribution Width 16.4 % (11.8-14.3); White Blood Cell 6.9 10^3/uL (4.4-10.8)
[2022-06-01 06:41] LABS: Potassium 3.9 mmol/L (3.5-5.1)
[2022-06-01 06:49] LABS: Albumin 3.1 g/dL (3.4-5.0); BUN/Creatinine Ratio 9.2; Calcium 8.6 mg/dL (8.5-10.1)
[2022-06-01 06:51] LABS: Bilirubin, Total 0.6 mg/dL (0.2-1.0); Total Protein 6.4 g/dL (6.4-8.2)
[2022-06-01 09:00] VITALS: BP 117/62
[2022-06-01] MEDS: D5W/SOD CHL 0.45%/KCL 20MEQ 1,000 ML IV SCH (09:00)
[2022-06-01] MEDS ORDERED: HYDR-4902 PO (09:33)
[2022-06-01] MEDS: PATIENTS OWN MEDICATION (Prenatal Vit W/ Ferrous Fumara (Prenatal One Daily) 1 TAB) PO SCH (10:00)
[2022-06-01] MEDS: PANTOPRAZOLE 40 MG/10 ML VIAL INJ IV SCH (10:00)
[2022-06-01] MEDS: ENOXAPARIN SOD 40 MG/0.4 ML SYRINGE SC SCH (10:00)
[2022-06-01 10:13] VITALS: BP 117/62
== END 2022-06-01 10:48 | disposition home or self-care (01) | DRG 263 ==
LOC: EDBD 07:14 → ER 07:14 → OVERFLOW 10:53 → CENTRAL 16:38
PROVIDERS: ADMIT Nurse Practitioner Family; ATTEND Internal Medicine Geriatric Medicine
PROC: 0FT44ZZ Resection of Gallbladder, Percutaneous Endoscopic Approach (ICD-10-PCS; principal; 2022-05-31 12:08)
DX: K80.10 Calculus of gallbladder with chronic cholecystitis without obstruction (principal); K76.0 Fatty (change of) liver, not elsewhere classified; R16.0 Hepatomegaly, not elsewhere classified; K80.12 Calculus of gallbladder with acute and chronic cholecystitis without obstruction; J45.909 Unspecified asthma, uncomplicated; Z20.822 Contact with and (suspected) exposure to COVID-19; D64.9 Anemia, unspecified; F17.210 Nicotine dependence, cigarettes, uncomplicated; F32.A Depression, unspecified
CPT/HCPCS: 36415; 76705; 80053; 80074; 80307; 81001; 81025; 83690; 83735; 84484; 84702; 85025; 85610; 86850; 86900; 86901; 87426; 93005; 96374; 96375; C9113; G0378; J1885; J2405; J3490